=== PATIENT | male | born 1975 | race African-American/Black ===

== ENCOUNTER 2019-08-16 08:02 | Emergency (ER) | payer BC, MEDICAID ==
[~2019-08-16] VITALS: Ht 172.7 cm; Wt 160.0 kg
[~2019-08-16 08:02] MED LIST: AMLO1TAB36 PO; CREAM FOR ECZEMA; [UNRECOGNIZED DRUG - OTHER] PO
[2019-08-16] MEDS ORDERED: VALS40TA4 PO (08:37)
[2019-08-16] MEDS ORDERED: AMLO10TA7 PO (08:38)
[2019-08-16] MEDS ORDERED: PHENYLEPHRINE/SHK LV/MIN OIL/PET 57 GM OINTMENT TP ONE (11:00)
[2019-08-16 11:10] VITALS: BP 144/95
== END 2019-08-16 11:26 | disposition home or self-care (01) ==
LOC: EMS 08:05
DX: K64.4 Residual hemorrhoidal skin tags (principal); I10 Essential (primary) hypertension; F17.210 Nicotine dependence, cigarettes, uncomplicated